=== PATIENT | female | born 1960 | race Caucasian/White ===

== ENCOUNTER 2021-10-09 20:29 | Inpatient (IN) ==
[2021-10-09] MEDS ORDERED: KETOROLAC TROMETHAMINE 15 MG/ML VIAL IV STA (20:42)
[2021-10-09] MEDS ORDERED: ONDANSETRON INJ 2 MG/ML 2 ML VIAL IV STA (20:42)
[2021-10-09] MEDS ORDERED: SODIUM CHLORIDE 0.9% 1000ML 1,000 ML IV ONE (20:42)
[2021-10-09 21:24] LABS: Basophils # (auto) 0.01 K/uL (0-0.2); Basophils % (auto) 0.1 %; Eosinophils # (auto) 0.07 K/uL (0-0.5); Eosinophils % (auto) 0.8 %; Hematocrit (blood only) 41.9 % (37-47); Immature Granulocytes # (auto) 0.01 K/uL (0.00-0.02); Immature Granulocytes % (auto) 0.1 %; Lymphocytes % (auto) 30.8 %; Mean Corpuscular Hemoglobin 30.6 pg (25-34); Mean Corpuscular Hgb Conc 33.4 g/dL (32-36); Mean Corpuscular Volume 91.5 fL (80-100); Mean Platelet Volume 9.1 fL (7.4-10.4); Monocytes # (auto) 0.74 K/uL (0.11-0.59); Monocytes % (auto) 8.1 %; Neutrophils # (auto) 5.45 K/uL (1.4-6.5); Neutrophils % (auto) 60.1 %; Platelet Count 317 K/uL (130-400); RDW Coefficient of Variation 14.4 % (11.5-14.5); RDW Standard Deviation 48.5 fL (36.4-46.3); Red Blood Count 4.58 M/uL (4.2-5.4); White Blood Count 9.08 K/uL (4.8-10.8)
[2021-10-09 22:01] LABS: Albumin Level 4.2 gm/dl (3.4-5.0); BUN Creatinine Ratio 12.3 (10-20); Bilirubin,Total 0.3 mg/dl (0.2-1.0); Calcium 9.6 mg/dl (8.5-10.1); Creatinine Clr Calc Pharmacy 56.9 ml/min; Est GFR (African American) 55.8 ml/min; Est GFR (Non-African American) 48.1 ml/min; Potassium 3.5 mmol/L (3.5-5.1); Total Protein 7.7 gm/dl (6.0-8.3)
--- NOTE | 2021-10-09 22:38 | Emergency Department Note ---
History of Present Illness General Chief Complaint: Abdominal Pain Stated Complaint: ABDOMINAL PAIN, NAUSEA Time Seen by Provider: 10/09/21 20:42 History of Present Illness Provider Complaint: abdominal pain Onset (ago): 1 day(s) Pain Consistency: constant Location: periumbilical Radiation: epigastric Severity: moderate Maximum Pain Intensity: 4 Current Pain Intensity: 4 Quality: + stabbing, + aching, + sharp and + dull Relieved By: + nothing Exacerbated By: + nothing Context: no foreign travel, no possible food poisoning, no sick contacts, no recent antibiotic use, no recent surgery/procedure or no recent injury Associated Symptoms: + nausea; no vomiting, no diarrhea, no fever, no chills, no constipation, no dysuria, no hematemesis, no hematochezia, no melena, no hematuria, no anorexia, no syncope, no headache, no neck pain, no back pain, no chest pain, no weakness, no breathing difficulty and no numbness Related Data Patient Confirmed : No Home Medications Medication Instructions Recorded Confirmed Type acetaminophen 500 mg tablet 1,000 mg PO Q6H PRN 01/20/20 01/20/20 History (Tylenol Extra Strength) citalopram 20 mg tablet (Celexa) 30 mg PO DAILY 01/20/20 01/20/20 History lorazepam 1 mg tablet (Ativan) 1 mg PO DAILY 01/20/20 01/20/20 History Allergies Allergy/AdvReac Type Severity Reaction Status Date / Time No Known Allergies Allergy Verified 01/20/20 22:19 Past Med/Surg History Medical History (Updated 10/09/21 @ 23:53 by Sameer Vinson) Anxiety Surgical History No pertinent past surgical history Social History Smoking Status: Never smoker Preferred Language: Indonesian Feels Safe at Home: Yes Review of Systems A total of 10 systems reviewed and were otherwise negative Physical Exam Vital Signs: Vital Signs - 24 hr 10/09/21 20:36 10/09/21 20:42 10/09/21 21:00 Temperature 36.8 C 36.8 C Temperature Source Temporal Artery Sc an Oral Pulse Rate 105 H 74 Pulse Rate [Apical ] 100 H Pulse Rhythm Regular Regular Pulse Rhythm [Apic al] Regular Pulse Strength Normal Pulse Strength [Ap ical] Normal Respiratory Rate 18 18 18 Respiratory Effort / Characteristics Non-Labored Sponta neous Non-Labored Sponta neous Respiratory Depth Normal Normal Respiratory Patter n Regular Regular Blood Pressure 162/96 H Blood Pressure [Ri ght Arm] 144/117 H Blood Pressure [place] n 118 Blood Pressure [place] n [Right Arm] 126 Blood Pressure Pos ition Sitting Blood Pressure Pos ition [Right Arm] Lying Pulse Oximetry 97 97 98 Oxygen Delivery Me thod Room Air Room Air Room Air Sepsis Recent Feve r Within 48 Hours No Sepsis New/Unexpla ined Change in Men cruzito Status N/A Sepsis Action Take n by Nursing No Action Required 10/09/21 23:00 Temperature 36.8 C Temperature Source Oral Pulse Rate Pulse Rate [Apical ] 72 Pulse Rhythm Pulse Rhythm [Apic al] Regular Pulse Strength Pulse Strength [Ap ical] Normal Respiratory Rate 18 Respiratory Effort / Characteristics Non-Labored Sponta neous Respiratory Depth Normal Respiratory Patter n Regular Blood Pressure Blood Pressure [Ri ght Arm] 150/97 H Blood Pressure [place] n Blood Pressure [place] n [Right Arm] 114 Blood Pressure Pos ition Blood Pressure Pos ition [Right Arm] Lying Pulse Oximetry 96 Oxygen Delivery Me thod Room Air Sepsis Recent Feve r Within 48 Hours Sepsis New/Unexpla ined Change in Men cruzito Status Sepsis Action Take n by Nursing Physical Exam: Physical Exam GENERAL: She is oriented to person, place, and time. She appears well-developed and well-nourished. She does not appear distressed. HENT: Exam performed. -Head: Normocephalic and atraumatic. -Right Ear: External ear normal. No mastoid tenderness. -Left Ear: External ear normal. No mastoid tenderness. -Mouth/Throat: The oropharynx is clear and moist. No trismus in the jaw. No dental abscesses or uvula swelling. No oropharyngeal exudate or tonsillar abscesses. EYES: Conjunctivae and EOM are normal. Pupils are equal, round, and reactive to light. Right eye exhibits no discharge. Left eye exhibits no discharge. No scleral icterus. NECK: Normal range of motion. Neck supple. No JVD present. No spinous process tenderness present. No carotid bruit present. No rigidity. No tracheal deviation and normal range of motion present. No Brudzinski's sign and no Kernig's sign noted. CV: Normal rate, regular rhythm, normal heart sounds and intact distal pulses. There is no peripheral edema. Palpable radial pulses bue. PULM/CHEST: Effort normal and breath sounds normal. No respiratory distress. No stridor. She has no wheezes. She has no rales. -Chest Wall: She exhibits no tenderness. ABD: The abdomen is soft. Bowel sounds are normal. She has no distension. No mass is present. There is no tenderness. There is no rebound, no guarding, no Reyes's sign and no tenderness at McBurney's point. Rovsig negative MUSC/SKEL: Normal range of motion. There is no peripheral edema, tenderness or deformity. LYMPH: No cervical adenopathy. NEURO: She is alert and oriented to person, place, and time. She has normal strength. No cranial nerve deficit or sensory deficit. Coordination and gait normal. GCS eye subscore is 4. GCS verbal subscore is 5. GCS motor subscore is 6. Cerebellar tests wnl. SKIN: Skin is warm and dry. She is not diaphoretic. PSYCH: She has a normal mood and affect. Behavior is normal. Judgment and thought content normal. Course Course 2041: The patient was evaluated in room . A complete history and physical exam was performed Cardiac monitoring: An order was placed for continuous cardiac monitoring. The monitor shows a rate of 100 with sinus rhythm 2351: Vital signs stable. Labs within normal limits. Imaging shows inflammation around the pancreas. Patient will be admitted to the [facility] hospitalist team for pancreatitis. Patient is a [facility] GI Dr. [place]. Administered Medications Discontinued Medications Sodium Chloride (Nss 1000ml) 1,000 mls @ 999 mls/hr IV .Q1H1M ONE Stop: 10/09/21 21:42 Last Infusion: 10/09/21 21:58 Dose: 0 mls/hr Documented by: [id number] Admin: 10/09/21 21:11 Dose: 999 mls/hr Documented by: [id number] Ketorolac Tromethamine (Ketorolac Tromethamine 15 Mg/Ml Vial) 15 mg IV NOW STA Stop: 10/09/21 20:43 Last Admin: 10/09/21 21:11 Dose: 15 mg Documented by: [id number] Ondansetron HCl (Ondansetron Inj 2 Mg/Ml 2 Ml Vial) 4 mg IV NOW STA Stop: 10/09/21 20:43 Last Admin: 10/09/21 21:11 Dose: 4 mg Documented by: [id number] Medical Decision Making Laboratory Data Result diagrams: 10/09/21 21:05 10/09/21 21:05 Lab Results 10/09/21 10/09/21 10/09/21 Range/Units 21:05 21:05 21:05 WBC 9.08 (4.8-10.8) K/uL RBC 4.58 (4.2-5.4) M/uL Hgb 14.0 (12.0-16.0) g/dL Hct 41.9 (37-47) % MCV 91.5 (80-100) fL MCH 30.6 (25-34) pg MCHC 33.4 (32-36) g/dL RDW Std Deviation 48.5 H (36.4-46.3) fL RDW Coeff of Anayeli 14.4 (11.5-14.5) % Plt Count 317 (130-400) K/uL MPV 9.1 (7.4-10.4) fL Immature Gran % (Auto) 0.1 % Neut % (Auto) 60.1 % Lymph % (Auto) 30.8 % [place] % (Auto) 8.1 % Eos % (Auto) 0.8 % Baso % (Auto) 0.1 % Neut # (Auto) 5.45 (1.4-6.5) K/uL Lymph # (Auto) 2.80 (1.2-3.4) K/uL [place] # (Auto) 0.74 H (0.11-0.59) K/uL Eos # (Auto) 0.07 (0-0.5) K/uL Baso # (Auto) 0.01 (0-0.2) K/uL Immature Gran # (Auto) 0.01 (0.00-0.02) K/uL Sodium 140 (136-145) mmol/L Potassium 3.5 (3.5-5.1) mmol/L Chloride 105 (98-107) mmol/L Carbon Dioxide 28 (21-32) mmol/L Anion Gap 7 (3-11) BUN 15 (6-23) mg/dl Creatinine 1.22 H (0.6-1.2) mg/dl Est Cr Clr Drug Dosing 56.9 ml/min Est GFR ( Amer) 55.8 ml/min Est GFR (Non-Af Amer) 48.1 ml/min BUN/Creatinine Ratio 12.3 (10-20) Glucose 138 H (70-99(Fasting)) mg/dl Calcium 9.6 (8.5-10.1) mg/dl Total Bilirubin 0.3 (0.2-1.0) mg/dl Direct Bilirubin 0.0 (0-0.2) mg/dl AST 18 (13-39) U/L ALT 20 (7-52) U/L Alkaline Phosphatase 103 (34-104) U/L Total Protein 7.7 (6.0-8.3) gm/dl Albumin 4.2 (3.4-5.0) gm/dl Lipase 26 (11-82) U/L Imaging Data Radiologist's Impression: PreliminaryFindingsOnly See Final Report For Complete Findings CT ABDOMEN & PELVIS With Contrast: Status post cholecystectomy. Small hiatal hernia. The appendix is normal. No evidence of hydronephrosis or urinarycalculi. Moderate atrophyof the pancreaswith mild inflammation around the pancreatic head, which mayrepresent pancreatitis. Recommend correlation with lipase levels. No evidence of small bowel obstruction. Diverticulosis of the sigmoid colon. No comparisons. Radiologist: Steff Cunha MD Study ready at 23:22 and initial results transmitted at 23:33 ECG Data Indication: abdominal pain Rate (beats per minute): 97 Rhythm: normal sinus Findings: no ST depression, no ST elevation or no prolonged QT MDM Narrative Vital signs stable. Labs within normal limits. Imaging shows inflammation around the pancreas. Patient will be admitted to the [facility] hospitalist team for pancreatitis. Patient is a [facility] GI Dr. [place]. Impression & Plan Pancreatitis Discharge Plan Visit Data Chief Complaint: Abdominal Pain Stated Complaint: ABDOMINAL PAIN, NAUSEA ED Provider: Sameer Vinson Discharge Problem: Pancreatitis Patient Disposition: Being Evaluated by Hospitalist Forms Stand Alone Forms: [employer] Prescriptions Prescriptions: No Action acetaminophen [Tylenol Extra Strength] 500 mg Tablet 1,000 mg PO Q6H PRN (Reason: Pain) RF: 0 citalopram [Celexa] 20 mg tablet 30 mg PO DAILY RF: 0 lorazepam [Ativan] 1 mg tablet 1 mg PO DAILY RF: 0 Referrals Referrals: Farooq Regan DO [Primary Care Provider] -
[2021-10-09] MEDS ORDERED: OPTIRAY 320 100ml IV ONE (23:20)
[2021-10-09] MEDS ORDERED: SODIUM CHLORIDE 0.9% 1000ML 1,000 ML IV SCH (23:45)
[2021-10-10] MEDS ORDERED: LACTATED RINGER'S 1,000 ML IV ONE (00:02)
--- NOTE | 2021-10-10 00:05 | History & Physical Report ---
Date of Service October 10, 2021 Assessment & Plan (1) Pancreatitis: Plan: ? Secondary COVID-19 illness hypertension, elevated secondary discomfort ARF secondary to illness hyperlipidemia on statin Rx anxiety/mood disorder, at baseline Hyperglycemia rule out DM GMF Bowel rest, IVF GI consult Re: Pancreatitis Supportive management for patient's COVID-19 illness Baseline UA, monitor creatinine response to IVF Hold lisinopril until creatinine back to baseline Initiate amlodipine if BP persistently elevated Check hemoglobin A1c DVT prophylaxis per Heparin subcu Full code Text document was generated using ustyme voice recognition software. It may contain grammatical or spelling errors. Kindly contact undersigned for clarification of any documentation item in question. History of Present Illness Chief Complaint: Abdominal pain Primary Care Provider: Farooq Regan DO History obtained from patient and records. Medical history significant for hypertension, hyperlipidemia, anxiety/mood disorder. Last confinement April 2013 under Gynecology service for right adnexal mass status post surgery. 4 days history of dry cough symptoms, chills, fair appetite. 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 Patient completed COVID-19 vaccination. Yesterday, patient noted achy periumbilical abdominal pain going up with nausea which felt like her gallbladder attack. No emesis. No chest pain, no SOB, no fever, no chills. No prior episodes. No recent EtOH intake/fatty meal intake. Patient consulted ER for evaluation. 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 Allergies Allergy/AdvReac Type Severity Reaction Status Date / Time No Known Allergies Allergy Verified 10/10/21 00:12 Home Medications Medication Instructions Recorded Confirmed Type lorazepam 1 mg tablet (Ativan) 1 mg PO AMPM PRN 01/20/20 10/10/21 History atorvastatin 40 mg tablet 40 mg PO QAM 10/10/21 10/10/21 History buspirone 10 mg tablet 20 mg PO BID 10/10/21 10/10/21 History hydroxyzine HCl 50 mg tablet 50 mg PO BID 10/10/21 10/10/21 History lisinopril 10 mg tablet 10 mg PO QAM 10/10/21 10/10/21 History omeprazole magnesium 20 mg 20 mg PO DAILY 10/10/21 10/10/21 History tablet,delayed release (Prilosec OTC) sertraline 100 mg tablet 100 mg PO DAILY 10/10/21 10/10/21 History Past Med/Surg History Medical History (Updated 10/09/21 @ 23:53 by Sameer Vinson) Anxiety Surgical History No pertinent past surgical history Social History Smoking Status: Never smoker Hx Alcohol Use: No Hx Substance Use: No Preferred Language: [place] Islander Communication Ability: Effective 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 Beliefs That Will Affect Care: None Current Living Situation: Family Other Information That Helps Us Care for You: No Feels Safe at Home: Yes Safety Concerns: Feels Safe At This Time Assistive Devices: Glasses Review of Systems Review of Systems: As per HPI, all other systems reviewed and negative Physical Exam Physical Exam: GENERAL: Comfortable, pleasant, obese, slightly anxious, no respiratory distress SKIN: Normal color, warm HEENT: Bespectacled, [place]ago palpebral conjunctivae, no ptosis, dry buccal mucosa NECK : Supple, short neck, no tenderness CHEST : CTA, no tenderness HEART : RRR, no obvious murmurs ABDOMEN: Some distention, epigastric tenderness EXTREMITIES : No LE swelling/tenderness, no other conspicuous deformities noted NEUROLOGIC : Coherent, no facial asymmetry, no other gross focality Results & Data Results & Data ([facility]) Vital Signs (Past 12 Hours) Vital Signs Temp Pulse Pulse Resp BP BP Pulse Ox 10/09/21 23:00 36.8 C 72 18 150/97 H 96 10/09/21 21:00 36.8 C 100 H 18 144/117 H 98 10/09/21 20:42 74 18 97 10/09/21 20:36 36.8 C 105 H 18 162/96 H 97 Laboratory Results Laboratory Results WBC 9.08 K/uL (4.8-10.8) 10/09/21 21:05 RBC 4.58 M/uL (4.2-5.4) 10/09/21 21:05 Hgb 14.0 g/dL (12.0-16.0) 10/09/21 21:05 Hct 41.9 % (37-47) 10/09/21 21:05 MCV 91.5 fL (80-100) 10/09/21 21:05 MCH 30.6 pg (25-34) 10/09/21 21:05 MCHC 33.4 g/dL (32-36) 10/09/21 21:05 RDW Std Deviation 48.5 fL (36.4-46.3) H 10/09/21 21:05 RDW Coeff of Anayeli 14.4 % (11.5-14.5) 10/09/21 21:05 Plt Count 317 K/uL (130-400) 10/09/21 21:05 MPV 9.1 fL (7.4-10.4) 10/09/21 21:05 Immature Gran % (Auto) 0.1 % 10/09/21 21:05 Neut % (Auto) 60.1 % 10/09/21 21:05 Lymph % (Auto) 30.8 % 10/09/21 21:05 [place] % (Auto) 8.1 % 10/09/21 21:05 Eos % (Auto) 0.8 % 10/09/21 21:05 Baso % (Auto) 0.1 % 10/09/21 21:05 Neut # (Auto) 5.45 K/uL (1.4-6.5) 10/09/21 21:05 Lymph # (Auto) 2.80 K/uL (1.2-3.4) 10/09/21 21:05 [place] # (Auto) 0.74 K/uL (0.11-0.59) H 10/09/21 21:05 Eos # (Auto) 0.07 K/uL (0-0.5) 10/09/21 21:05 Baso # (Auto) 0.01 K/uL (0-0.2) 10/09/21 21:05 Immature Gran # (Auto) 0.01 K/uL (0.00-0.02) 10/09/21 21:05 Sodium 140 mmol/L (136-145) 10/09/21 21:05 Potassium 3.5 mmol/L (3.5-5.1) 10/09/21 21:05 Chloride 105 mmol/L (98-107) 10/09/21 21:05 Carbon Dioxide 28 mmol/L (21-32) 10/09/21 21:05 Anion Gap 7 (3-11) 10/09/21 21:05 BUN 15 mg/dl (6-23) 10/09/21 21:05 Creatinine 1.22 mg/dl (0.6-1.2) H 10/09/21 21:05 Est Cr Clr Drug Dosing 56.9 ml/min 10/09/21 21:05 Est GFR ( Amer) 55.8 ml/min 10/09/21 21:05 Est GFR (Non-Af Amer) 48.1 ml/min 10/09/21 21:05 BUN/Creatinine Ratio 12.3 (10-20) 10/09/21 21:05 Glucose 138 mg/dl (70-99(Fasting)) H 10/09/21 21:05 Calcium 9.6 mg/dl (8.5-10.1) 10/09/21 21:05 Total Bilirubin 0.3 mg/dl (0.2-1.0) 10/09/21 21:05 Direct Bilirubin 0.0 mg/dl (0-0.2) 10/09/21 21:05 AST 18 U/L (13-39) 10/09/21 21:05 ALT 20 U/L (7-52) 10/09/21 21:05 Alkaline Phosphatase 103 U/L (34-104) 10/09/21 21:05 Total Protein 7.7 gm/dl (6.0-8.3) 10/09/21 21:05 Albumin 4.2 gm/dl (3.4-5.0) 10/09/21 21:05 Lipase 26 U/L (11-82) 10/09/21 21:[address] abdomen pelvis initial read: Status post cholecystectomy. Small hiatal hernia. The appendix is normal. No evidence of hydronephrosis or urinary calculi. Moderate atrophy of the pancreas with mild inflammation around the pancreatic head, which may represent pancreatitis. Recommend correlation with lipase levels. No evidence of small bowel obstruction. Diverticulosis of the sigmoid colon. No comparisons Chest x-ray as per my interpretation atelectasis, no infiltrate (1) Pancreatitis Acute pancreatitis complication: unspecified Chronicity: acute Pancreatitis type: unspecified pancreatitis type Qualified Code(s): K85.90 - Acute pancreatitis without necrosis or infection, unspecified
[2021-10-10] MEDS ORDERED: HYDROmorphone INJ 0.5 MG/0.5 ML SYR IV PRN (01:01)
[2021-10-10] MEDS ORDERED: PROMETHAZINE HCL 12.5 MG in SODIUM CHLORIDE 0.9% 50 ML IV PRN (01:01)
[2021-10-10] MEDS ORDERED: traMADol HCL 50 MG TABLET PO PRN (01:01)
[2021-10-10] MEDS ORDERED: ACETAMINOPHEN 325 MG TAB PO PRN (01:01)
[2021-10-10] MEDS: LACTATED RINGER'S 1,000 ML IV SCH ×4 (04:15→19:56)
[2021-10-10] MEDS: LORazepam 1 MG TAB PO PRN ×2 (04:30→18:36)
[2021-10-10] MEDS: HEPARIN SOD 5,000 UNIT/0.5 ML VIAL SQ SCH ×3 (05:50→19:59)
--- NOTE | 2021-10-10 06:45 | XRay Report ---
XR chest 1V portable CLINICAL HISTORY: Renal failure. COMPARISON STUDY: Chest radiograph April 24, 2013. FINDINGS: Lung volumes are normal. Lungs are clear. There is no pneumothorax or pleural effusion. Car diac size is normal. Mediastinal contours are normal. There is no evidence for pulmonary edema. IMPRESSION: No acute cardiopulmonary findings. ACT 112: Negative or not required by law. Electronically signed by: Tato Jane M.D. 10/10/2021 6:44 AM
[2021-10-10 06:58] LABS: Basophils # (auto) 0.02 K/uL (0-0.2); Basophils % (auto) 0.3 %; Eosinophils # (auto) 0.08 K/uL (0-0.5); Eosinophils % (auto) 1.1 %; Hematocrit (blood only) 38.7 % (37-47); Hemoglobin 12.6 g/dL (12.0-16.0); Immature Granulocytes # (auto) 0.01 K/uL (0.00-0.02); Immature Granulocytes % (auto) 0.1 %; Lymphocytes # (auto) 2.26 K/uL (1.2-3.4); Lymphocytes % (auto) 31.4 %; Mean Corpuscular Hemoglobin 29.6 pg (25-34); Mean Corpuscular Hgb Conc 32.6 g/dL (32-36); Mean Corpuscular Volume 91.1 fL (80-100); Mean Platelet Volume 8.9 fL (7.4-10.4); Monocytes # (auto) 0.75 K/uL (0.11-0.59); Monocytes % (auto) 10.4 %; Neutrophils # (auto) 4.07 K/uL (1.4-6.5); Neutrophils % (auto) 56.7 %; Platelet Count 268 K/uL (130-400); RDW Coefficient of Variation 14.6 % (11.5-14.5); RDW Standard Deviation 48.8 fL (36.4-46.3); Red Blood Count 4.25 M/uL (4.2-5.4); White Blood Count 7.19 K/uL (4.8-10.8)
[2021-10-10 07:21] LABS: Albumin Globulin Ratio 1.2 (0.9-2); Albumin Level 3.6 gm/dl (3.4-5.0); BUN Creatinine Ratio 11.1 (10-20); Bilirubin,Total 0.3 mg/dl (0.2-1.0); Calcium 8.8 mg/dl (8.5-10.1); Creatinine Clr Calc Pharmacy 64.2 ml/min; Est GFR (African American) 64.6 ml/min; Est GFR (Non-African American) 55.8 ml/min; Globulin 2.9 gm/dl (2.5-4.0); Total Protein 6.5 gm/dl (6.0-8.3)
--- NOTE | 2021-10-10 07:41 | Gastrointestinal Consultation ---
Date of Consultation October 10, 2021 Assessment & Plan (1) Pancreatitis: 61 year old female with COVID-19 infection admitted with upper abdominal pain, nausea, imaging showing pancreatic atrophy and question of inflammatory changes near the head of the pancreas. She is s/p ccy years ago without serologic abnormalities including normal lipase and liver function tests. 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 Thank you for allowing us to participate in the care of this patient. Please call with any acute changes, questions or concerns. Please see addendum below with additional recommendation from my supervising physician. Supervising Physician Co-Signing Physician Notes I reviewed the patient's chart but did not examine the patient due to her recent diagnosis with COVID-19. We were consulted for evaluation of an abnormal imaging study. As the patient appears to have normal liver transaminases and a normal lipase I wonder if her imaging abnormality is related to her ongoing infection. We certainly provide further evaluation as an outpatient with endoscopic ultrasound in 6 to 8 weeks when she recovers from this acute infection. EUS in 6 to 8 weeks Please call with any additional questions or concerns, GI to sign off History of Present Illness Reason for Consultation: pancreatits Requesting Physician: Yudelka Attending Physician: Kelli Baird, DO History of Present Illness 61 year old female with history of dyslipidemia others below who presented to the ED for evaluation of abd pain, nausea - admitted with pancreatitis on imaging. Of note, pt endorsed a week of respiratory symptoms and tested positive for COVID-19 infection. Chart review was completed. CT pending official read, statrad overnight dictated s/p ccy, pancreatic atrophy and mild inflammation around pancreatic head which may represent pancreatitis. On arrival, she was hemodynamically stable with normal liver function test and unremarkable lipase. No leukocytosis. She was made NPO, started on LR replacement and conservative measures. Allergies Allergy/AdvReac Type Severity Reaction Status Date / Time No Known Allergies Allergy Verified 10/10/21 00:12 Home Medications Medication Instructions Recorded Confirmed Type lorazepam 1 mg tablet (Ativan) 1 mg PO AMPM PRN 01/20/20 10/10/21 History atorvastatin 40 mg tablet 40 mg PO QAM 10/10/21 10/10/21 History buspirone 10 mg tablet 20 mg PO BID 10/10/21 10/10/21 History hydroxyzine HCl 50 mg tablet 50 mg PO BID 10/10/21 10/10/21 History lisinopril 10 mg tablet 10 mg PO QAM 10/10/21 10/10/21 History omeprazole magnesium 20 mg 20 mg PO DAILY 10/10/21 10/10/21 History tablet,delayed release (Prilosec OTC) sertraline 100 mg tablet 100 mg PO DAILY 10/10/21 10/10/21 History Patient History Medical History (Updated 10/09/21 @ 23:53 by Sameer Vinson) Anxiety Surgical History No pertinent past surgical history Social History Smoking Status: Never smoker Hx Alcohol Use: No Hx Substance Use: No Preferred Language: Slovenian Communication Ability: 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) Vital Signs (Past 12 Hours) Vital Signs Temp Pulse Pulse Pulse Resp BP BP 10/10/21 03:53 36.8 C 99 H 18 154/95 H 10/10/21 03:00 37 C 80 18 150/97 H 10/10/21 01:00 36.9 C 67 18 150/97 H 10/09/21 23:00 36.8 C 72 18 150/97 H 10/09/21 21:00 36.8 C 100 H 18 144/117 H 10/09/21 20:42 74 18 10/09/21 20:36 36.8 C 105 H 18 162/96 H Pulse Ox 10/10/21 03:53 94 10/10/21 03:00 92 10/10/21 01:00 95 10/09/21 23:00 96 10/09/21 21:00 98 10/09/21 20:42 97 10/09/21 20:36 97 Laboratory Results 10/10/21 10/10/21 10/10/21 Range/Units 06:45 06:45 06:45 WBC 7.19 (4.8-10.8) K/uL RBC 4.25 (4.2-5.4) M/uL Hgb 12.6 (12.0-16.0) g/dL Hct 38.7 (37-47) % MCV 91.1 (80-100) fL MCH 29.6 (25-34) pg MCHC 32.6 (32-36) g/dL RDW Std Deviation 48.8 H (36.4-46.3) fL RDW Coeff of Anayeli 14.6 H (11.5-14.5) % Plt Count 268 (130-400) K/uL MPV 8.9 (7.4-10.4) fL Immature Gran % (Auto) 0.1 % Neut % (Auto) 56.7 % Lymph % (Auto) 31.4 % Polk % (Auto) 10.4 % Eos % (Auto) 1.1 % Baso % (Auto) 0.3 % Neut # (Auto) 4.07 (1.4-6.5) K/uL Lymph # (Auto) 2.26 (1.2-3.4) K/uL Polk # (Auto) 0.75 H (0.11-0.59) K/uL Eos # (Auto) 0.08 (0-0.5) K/uL Baso # (Auto) 0.02 (0-0.2) K/uL Immature Gran # (Auto) 0.01 (0.00-0.02) K/uL Sodium 141 (136-145) mmol/L Potassium 4.0 (3.5-5.1) mmol/L Chloride 107 (98-107) mmol/L Carbon Dioxide 28 (21-32) mmol/L Anion Gap 6 (3-11) BUN 12 (6-23) mg/dl Creatinine 1.08 (0.6-1.2) mg/dl Est Cr Clr Drug Dosing 64.2 ml/min Est GFR ( Amer) 64.6 ml/min Est GFR (Non-Af Amer) 55.8 ml/min BUN/Creatinine Ratio 11.1 (10-20) Glucose 97 (70-99(Fasting)) mg/dl Estimat Average Glucose Hemoglobin A1c Calcium 8.8 (8.5-10.1) mg/dl Magnesium (1.7-2.4) mg/dl Total Bilirubin 0.3 (0.2-1.0) mg/dl Direct Bilirubin (0-0.2) mg/dl AST 15 (13-39) U/L ALT 16 (7-52) U/L Alkaline Phosphatase 81 (34-104) U/L Total Protein 6.5 (6.0-8.3) gm/dl Albumin 3.6 (3.4-5.0) gm/dl Globulin 2.9 (2.5-4.0) gm/dl Albumin/Globulin Ratio 1.2 (0.9-2) Lipase (11-82) U/L Hepatitis C Ab (EIA) Pending Hep C Ab Signal/Cutoff Pending SARS-CoV-2, RNA, NAAT (NEGATIVE) 10/09/21 10/09/21 10/09/21 Range/Units 23:45 21:05 21:05 WBC (4.8-10.8) K/uL RBC (4.2-5.4) M/uL Hgb (12.0-16.0) g/dL Hct (37-47) % MCV (80-100) fL MCH (25-34) pg MCHC (32-36) g/dL RDW Std Deviation (36.4-46.3) fL RDW Coeff of Anayeli (11.5-14.5) % Plt Count (130-400) K/uL MPV (7.4-10.4) fL Immature Gran % (Auto) % Neut % (Auto) % Lymph % (Auto) % Polk % (Auto) % Eos % (Auto) % Baso % (Auto) % Neut # (Auto) (1.4-6.5) K/uL Lymph # (Auto) (1.2-3.4) K/uL Polk # (Auto) (0.11-0.59) K/uL Eos # (Auto) (0-0.5) K/uL Baso # (Auto) (0-0.2) K/uL Immature Gran # (Auto) (0.00-0.02) K/uL Sodium (136-145) mmol/L Potassium (3.5-5.1) mmol/L Chloride (98-107) mmol/L Carbon Dioxide (21-32) mmol/L Anion Gap (3-11) BUN (6-23) mg/dl Creatinine (0.6-1.2) mg/dl Est Cr Clr Drug Dosing ml/min Est GFR ( Amer) ml/min Est GFR (Non-Af Amer) ml/min BUN/Creatinine Ratio (10-20) Glucose (70-99(Fasting)) mg/dl Estimat Average Glucose Hemoglobin A1c Calcium (8.5-10.1) mg/dl Magnesium 1.9 (1.7-2.4) mg/dl Total Bilirubin (0.2-1.0) mg/dl Direct Bilirubin (0-0.2) mg/dl AST (13-39) U/L ALT (7-52) U/L Alkaline Phosphatase (34-104) U/L Total Protein (6.0-8.3) gm/dl Albumin (3.4-5.0) gm/dl Globulin (2.5-4.0) gm/dl Albumin/Globulin Ratio (0.9-2) Lipase 26 (11-82) U/L Hepatitis C Ab (EIA) Hep C Ab Signal/Cutoff SARS-CoV-2, RNA, NAAT POSITIVE A* (NEGATIVE) 10/09/21 10/09/21 10/09/21 Range/Units 21:05 21:05 20:43 WBC 9.08 (4.8-10.8) K/uL RBC 4.58 (4.2-5.4) M/uL Hgb 14.0 (12.0-16.0) g/dL Hct 41.9 (37-47) % MCV 91.5 (80-100) fL MCH 30.6 (25-34) pg MCHC 33.4 (32-36) g/dL RDW Std Deviation 48.5 H (36.4-46.3) fL RDW Coeff of Anayeli 14.4 (11.5-14.5) % Plt Count 317 (130-400) K/uL MPV 9.1 (7.4-10.4) fL Immature Gran % (Auto) 0.1 % Neut % (Auto) 60.1 % Lymph % (Auto) 30.8 % Polk % (Auto) 8.1 % Eos % (Auto) 0.8 % Baso % (Auto) 0.1 % Neut # (Auto) 5.45 (1.4-6.5) K/uL Lymph # (Auto) 2.80 (1.2-3.4) K/uL Polk # (Auto) 0.74 H (0.11-0.59) K/uL Eos # (Auto) 0.07 (0-0.5) K/uL Baso # (Auto) 0.01 (0-0.2) K/uL Immature Gran # (Auto) 0.01 (0.00-0.02) K/uL Sodium 140 (136-145) mmol/L Potassium 3.5 (3.5-5.1) mmol/L Chloride 105 (98-107) mmol/L Carbon Dioxide 28 (21-32) mmol/L Anion Gap 7 (3-11) BUN 15 (6-23) mg/dl Creatinine 1.22 H (0.6-1.2) mg/dl Est Cr Clr Drug Dosing 56.9 ml/min Est GFR ( Amer) 55.8 ml/min Est GFR (Non-Af Amer) 48.1 ml/min BUN/Creatinine Ratio 12.3 (10-20) Glucose 138 H (70-99(Fasting)) mg/dl Estimat Average Glucose Pending Hemoglobin A1c Pending Calcium 9.6 (8.5-10.1) mg/dl Magnesium (1.7-2.4) mg/dl Total Bilirubin 0.3 (0.2-1.0) mg/dl Direct Bilirubin 0.0 (0-0.2) mg/dl AST 18 (13-39) U/L ALT 20 (7-52) U/L Alkaline Phosphatase 103 (34-104) U/L Total Protein 7.7 (6.0-8.3) gm/dl Albumin 4.2 (3.4-5.0) gm/dl Globulin (2.5-4.0) gm/dl Albumin/Globulin Ratio (0.9-2) Lipase (11-82) U/L Hepatitis C Ab (EIA) Hep C Ab Signal/Cutoff SARS-CoV-2, RNA, NAAT (NEGATIVE) (1) Pancreatitis Acute pancreatitis complication: unspecified Chronicity: acute Pancreatitis type: unspecified pancreatitis type Qualified Code(s): K85.90 - Acute pancreatitis without necrosis or infection, unspecified
--- NOTE | 2021-10-10 08:30 | CT Scan Report ---
ABDOMEN AND PELVIS CT WITH IV CONTRAST CT DOSE: 1239.47 mGy.cm HISTORY: Acute generalized abdominal pain abd pain TECHNIQUE: Multiaxial CT images of the abdomen and pelvis were performed following the IV administrat ion of 93 cc of Optiray, A dose lowering technique was utilized adhering to the principles of ALARA. COMPARISON STUDY: CT abdomen and pelvis 04/24/2013 FINDINGS: Mild subsegmental bibasilar atelectasis. No pneumatosis or pneumoperitoneum. The imaged inf erior cardiac chambers are unremarkable. The spleen, adrenal glands and liver are unremarkable. Paten cy of the hepatic and portal veins. Cholecystectomy. Mild to moderate pancreatic atrophy. There is mi ld interstitial and peripancreatic edema involving the pancreatic head and uncinate process. No pancr eatic ductal dilation, focal fluid collection or mass identified. No biliary ductal dilation. Symmetric enhancement of the kidneys without hydronephrosis. Mild urinary bladder wall thickening wit h partial distention. Heterogeneous uterus with suggested fundal fibroid and subcentimeter calcificat ion. The previous noted large cystic pelvic mass is no longer present. No adnexal mass lesions identi fied on today's study. Aorta and IVC are unremarkable. There is no lymphadenopathy. Small hiatal hernia. Duodenal diverticulum. No bowel obstruction or bowel wall thickening. Colonic di verticulosis without acute diverticulitis. Mild fecal retention. Normal appendix. Unremarkable soft t issues. Degenerative changes of the spine, pelvis and hips. IMPRESSION: 1. Mild interstitial edematous pancreatitis. 2. No pancreatic or biliary ductal dilation or acute peripancreatic fluid collection. 3. No bowel obstruction or bowel wall thickening. 4. Additional findings as above include colonic diverticulosis, fibroid uterus and small hiatal herni a. ACT 112: Negative or not required by law. The above report was generated using voice recognition software. It may contain grammatical, syntax o r spelling errors. Electronically signed by: Fermin Edwards M.D. 10/10/2021 8:29 AM
[2021-10-10] MEDS: hydrOXYzine HCl 25 MG TAB PO SCH ×2 (08:41→19:59)
[2021-10-10] MEDS: SERTRALINE HCL 100 MG TABLET PO SCH (08:42)
[2021-10-10] MEDS: PANTOprazole 40 MG TAB PO SCH (08:42)
[2021-10-10 08:44] LABS: Estimated Average Glucose 126 mg/dl
[2021-10-10] MEDS ORDERED: busPIRone 5 MG TAB PO SCH ×2 (09:00→16:00)
[2021-10-10 09:34] LABS: Appearance Urine Clear (Clear); Bacteria Urine Automated Negative (Negative); Bilirubin Urine Negative (Negative); Blood Urine 1+ (Negative); Cast Urine Automated 0 /lpf (0-5); Color Urine Yellow; Epithelial Cell Urine Auto 20-30 /lpf (0-5); Glucose Urine UA Negative (Negative); Ketones Urine Negative (Negative); Leukocyte Esterase Urine Negative (Negative); Nitrite Urine Negative (Negative); Protein Urine Negative (Negative); RBC Urine Automated 0-4 /hpf (0-4); Specific Gravity Urine 1.025 (1.000-1.030); Urobilinogen Urine Negative (Negative)
--- NOTE | 2021-10-10 12:03 | Hospitalist Progress Note ---
Date of Service October 10, 2021 Assessment & Plan (1) Pancreatitis: Plan: ? Secondary COVID-19 illness vs other -cont clears and decrease LR rate to 150cc/hr, likely advance diet in am. Outpatient EUS in 4-6 weeks. hypertension, elevated secondary discomfort-improved ARF secondary to illness-resolved with IVF, restart lisinopril hyperlipidemia on statin Rx anxiety/mood disorder, at baseline Hyperglycemia without evidence of DMII (A1C is 6) Heparin-change to Lovenox to decrease shot burden Full code Dispo-to home this weekend DO Jennifer Carlin Hospitalist Admission and Anticipated Discharge Date Admission Date: October 10, 2021 Subjective 61 yo F presents with abdominal pain that is suprapubic and epigastric Was tolerating food all day and remains on clears without further abd pain Lipase and LFTs normal Improved today Review of Systems Review of Systems: All systems were reviewed and negative except as indicated in HPI above. Physical Exam Physical Exam: CONSTITUTIONAL: WNWD, vitals as above, generally well- appearing, NAD EYES: normal conjunctivae, no scleral icterus ENT: external ear and nose normal, MMM NECK: trachea midline, RESPIRATORY: clear to auscultation bilaterally, no crackles, rales or wheezes, normal respiratory effort CARDIOVASCULAR: regular rate and rhythm, S1 and 2 heard without murmurs, gallops or rubs, no JVD, no peripheral edema CHEST: inspection of chest was normal GASTROINTESTINAL: soft, nontender, ND, no guarding MUSCULOSKELETAL: strength 5/5 throughout, head is normocephalic and atraumatic, neck supple, normal palpation of chest wall without tenderness SKIN: warm and dry, NEUROLOGIC: CN 2-12 grossly intact, no sensory deficit, normal cognition, normal speech, no tremor PSYCHIATRIC: alert cooperative and oriented to person, place and time. Results & Data Results & Data ([facility]) Vital Signs (Past 12 Hours) Vital Signs Temp Pulse Pulse Resp BP Pulse Ox 10/10/21 08:39 36.7 C 85 16 135/86 95 10/10/21 03:53 36.8 C 99 H 18 154/95 H 94 10/10/21 03:00 37 C 80 18 150/97 H 92 10/10/21 01:00 36.9 C 67 18 150/97 H 95 Laboratory Results Short CBC 10/09/21 10/10/21 Range/Units 21:05 06:45 WBC 9.08 7.19 (4.8-10.8) K/uL Hgb 14.0 12.6 (12.0-16.0) g/dL Hct 41.9 38.7 (37-47) % Plt Count 317 268 (130-400) K/uL BMP 10/09/21 10/10/21 21:05 06:45 Sodium 140 141 Potassium 3.5 4.0 Chloride 105 107 Carbon Dioxide 28 28 BUN 15 12 Creatinine 1.22 H 1.08 Glucose 138 H 97 Calcium 9.6 8.8 Liver Function 10/09/21 10/10/21 Range/Units 21:05 06:45 Total Bilirubin 0.3 0.3 (0.2-1.0) mg/dl Direct Bilirubin 0.0 (0-0.2) mg/dl AST 18 15 (13-39) U/L ALT 20 16 (7-52) U/L Alkaline Phosphatase 103 81 (34-104) U/L Albumin 4.2 3.6 (3.4-5.0) gm/dl Urine 10/10/21 Range/Units 08:50 Urine Color Yellow Urine Appearance Clear (Clear) Urine pH 6.0 (4.5-7.5) Ur Specific Mather 1.025 (1.000-1.030) Urine Protein Negative (Negative) Urine Glucose (UA) Negative (Negative) Diagnostic Findings Abdomen/Pelvis CT 10/09/21 20:[address] WITH IV CONTRAST CT DOSE: 1239.47 mGy.cm HISTORY: Acute generalized abdominal pain abd pain TECHNIQUE: Multiaxial CT images of the abdomen and pelvis were performed following the IV administration of 93 cc of Optiray, A dose lowering technique was utilized adhering to the principles of ALARA. COMPARISON STUDY: CT abdomen and pelvis 04/24/2013 FINDINGS: Mild subsegmental bibasilar atelectasis. No pneumatosis or pneumoperitoneum. The imaged inferior cardiac chambers are unremarkable. The spleen, adrenal glands and liver are unremarkable. Patency of the hepatic and portal veins. Cholecystectomy. Mild to moderate pancreatic atrophy. There is mild interstitial and peripancreatic edema involving the pancreatic head and uncinate process. No pancreatic ductal dilation, focal fluid collection or mass identified. No biliary ductal dilation. Symmetric enhancement of the kidneys without hydronephrosis. Mild urinary bladder wall thickening with partial distention. Heterogeneous uterus with suggested fundal fibroid and subcentimeter calcification. The previous noted large cystic pelvic mass is no longer present. No adnexal mass lesions identified on today's study. Aorta and IVC are unremarkable. There is no lymphadenopathy. Small hiatal hernia. Duodenal diverticulum. No bowel obstruction or bowel wall thickening. Colonic diverticulosis without acute diverticulitis. Mild fecal ret ention. Normal appendix. Unremarkable soft tissues. Degenerative changes of the spine, pelvis and hips. IMPRESSION: 1. Mild interstitial edematous pancreatitis. 2. No pancreatic or biliary ductal dilation or acute peripancreatic fluid collection. 3. No bowel obstruction or bowel wall thickening. 4. Additional findings as above include colonic diverticulosis, fibroid uterus and small hiatal hernia. ACT 112: Negative or not required by law. The above report was generated using voice recognition software. It may contain grammatical, syntax or spelling errors. Electronically signed by: Fermin Edwards M.D. 10/10/2021 8:29 AM Chest X-Ray 10/10/21 00:02 XR chest 1V portable CLINICAL HISTORY: Renal failure. COMPARISON STUDY: Chest radiograph April 24, 2013. FINDINGS: Lung volumes are normal. Lungs are clear. There is no pneumothorax or pleural effusion. Cardiac size is normal. Mediastinal contours are normal. There is no evidence for pulmonary edema. IMPRESSION: No acute cardiopulmonary findings. ACT 112: Negative or not required by law. Electronically signed by: Tato Jane M.D. 10/10/2021 6:44 AM Medications Administered Current Inpatient Medications Acetaminophen (Acetaminophen 325 Mg Tab) 650 mg PO Q6H PRN PRN Reason: Fever/pain Stop: 11/09/21 01:00 Buspirone HCl (Buspirone 5 Mg Tab) 20 mg PO BID [facility] Stop: 11/09/21 08:59 Last Admin: 10/10/21 08:40 Dose: 20 mg Documented by: Heparin Sodium (Porcine) (Heparin Sod 5,000 Unit/0.5 Ml Vial) 5,000 units SQ Q8 MARCIA Stop: 11/09/21 05:59 Last Admin: 10/10/21 05:50 Dose: 5,000 units Documented by: Hydromorphone HCl (Hydromorphone Inj 0.5 Mg/0.5 Ml Syr) 0.5 mg IV Q3H PRN PRN Reason: Pain Stop: 10/24/21 01:00 Last Admin: 10/10/21 01:28 Dose: 0.5 mg Documented by: Hydroxyzine HCl (Hydroxyzine Hcl 25 Mg Tab) 50 mg PO BID MARCIA Stop: 11/09/21 08:59 Last Admin: 10/10/21 08:41 Dose: 50 mg Documented by: Promethazine HCl 12.5 mg/ (Sodium Chloride) 50.5 mls @ 202 mls/hr IV Q6H PRN PRN Reason: Nausea And Vomiting Stop: 11/09/21 01:00 Lactated Ringer's (Lr) 1,000 mls @ 200 mls/hr IV .Q5H MARCIA Stop: 10/11/21 04:59 Last Admin: 10/10/21 08:59 Dose: 200 mls/hr Documented by: Lorazepam (Lorazepam 1 Mg Tab) 1 mg PO BID PRN PRN Reason: Anxiety Stop: 11/09/21 03:51 Last Admin: 10/10/21 04:30 Dose: 1 mg Documented by: Pantoprazole Sodium (Pantoprazole 40 Mg Tab) 40 mg PO DAILY MARCIA Stop: 11/09/21 08:59 Last Admin: 10/10/21 08:42 Dose: 40 mg Documented by: Sertraline HCl (Sertraline Hcl 100 Mg Tablet) 100 mg PO DAILY MARCIA Stop: 11/09/21 08:59 Last Admin: 10/10/21 08:42 Dose: 100 mg Documented by: Tramadol HCl (Tramadol Hcl 50 Mg Tablet) 25 - 50 mg PO Q4H PRN PRN Reason: Pain Stop: 11/09/21 01:00 (1) Pancreatitis Acute pancreatitis complication: unspecified Chronicity: acute Pancreatitis type: unspecified pancreatitis type Qualified Code(s): K85.90 - Acute pancreatitis without necrosis or infection, unspecified
--- NOTE | 2021-10-10 18:02 | Electrocardiogram Report ---
Test Reason : Blood Pressure : / mmHG Vent. Rate : 097 BPM Atrial Rate : 097 BPM P-R Int : 146 ms QRS Dur : 098 ms QT Int : 378 ms P-R-T Axes : 050 014 093 degrees QTc Int : 480 ms Normal sinus rhythm Low voltage QRS Prolonged QT Abnormal ECG When compared with ECG of 29-MAY-2013 13:45, No significant change was found Confirmed by Jose Roberto Tong ([id number]) on 10/10/2021 6:01:50 PM Referred By: REFERRED SELF Confirmed By:Watler Tong
[2021-10-10] MEDS: busPIRone 5 MG TAB PO SCH (19:59)
[2021-10-10] MEDS ORDERED: MELATONIN 3 MG TAB PO PRN (21:02)
[2021-10-11] MEDS: hydrOXYzine HCl 25 MG TAB PO SCH (08:27)
[2021-10-11] MEDS: SERTRALINE HCL 100 MG TABLET PO SCH (08:27)
[2021-10-11] MEDS: PANTOprazole 40 MG TAB PO SCH (08:27)
[2021-10-11] MEDS: busPIRone 5 MG TAB PO SCH (08:27)
[2021-10-11] MEDS ORDERED: ENOXAPARIN INJ 40 MG/0.4 ML SYR SQ SCH (09:00)
[2021-10-11] MEDS ORDERED: lisinopril 10 MG TAB PO SCH (09:00)
--- NOTE | 2021-10-11 16:28 | Discharge Summary ---
Date of Service October 11, 2021 Admission HPI Per Admitting Provider Chief Complaint: Abdominal pain Primary Care Provider: Farooq Regan DO History obtained from patient and records. Medical history significant for hypertension, hyperlipidemia, anxiety/mood disorder. Last confinement April 2013 under Gynecology service for right adnexal mass status post surgery. 4 days history of dry cough symptoms, chills, fair appetite. 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 Patient completed COVID-19 vaccination. Yesterday, patient noted achy periumbilical abdominal pain going up with nausea which felt like her gallbladder attack. No emesis. No chest pain, no SOB, no fever, no chills. No prior episodes. No recent EtOH intake/fatty meal intake. Patient consulted ER for evaluation. Admission Exam Per Admitting Provider GENERAL: Comfortable, pleasant, obese, slightly anxious, no respiratory distress SKIN: Normal color, warm HEENT: Bespectacled, [place] palpebral conjunctivae, no ptosis, dry buccal mucosa NECK : Supple, short neck, no tenderness CHEST : CTA, no tenderness HEART : RRR, no obvious murmurs ABDOMEN: Some distention, epigastric tenderness EXTREMITIES : No LE swelling/tenderness, no other conspicuous deformities noted NEUROLOGIC : Coherent, no facial asymmetry, no other gross focality Principal Diagnosis COVID 19, pancreatitis Discharge Exam General: Sitting comfortably in bed, not in distress, on room air HEENT: EOMI, NGUYEN, MMM Chest: Clear breath sounds bilaterally, no wheezes or crackles CVS: Regular rate and rhythm, normal heart sounds, no murmur Abdomen: Soft, non tender, not distended, normal bowel sounds Neuro: Awake, alert, oriented, conversing well, non focal Extremities: No cyanosis, clubbing or edema Discharge Data Allergies Allergy/AdvReac Type Severity Reaction Status Date / Time No Known Allergies Allergy Verified 10/10/21 00:12 Consultations 10/09/21 23:43 ED Decision to Admit Stat 10/10/21 03:52 Consult Gastroenterology Routine Ordered Studies 10/09/21 20:51 CT abd pelvis IV con only Urgent Hospital Course (1) COVID-19: (2) Pancreatitis: 61 year old female who presented to the ED with abdominal pain and nausea. Labs unremarkable but CT A/P suggested mild interstitial edematous pancreatitis. Lipase normal, LFT normal, she is s/p cholecystectomy. She was managed with bowel rest, IVF initially- Diet advanced. She has been tolerating normal diet without any issues. No pain, nausea or vomiting. Seen by GI and recommended outpatient EUS in about 6 weeks. She is anxious to get discharged. She is not hypoxic, no respiratory symptoms, no pneumonia and does not require any treatment for COVID 19. I spoke with her daughter who states they have arrangements for home isolation for next 8 days. She is comfortable and stable for discharge. Recommended returning to ED if recurrence of abd pain, nausea/vomiting or fever. No medication changes were made. Total Time Total Time Spent Total Time Spent (In Minutes): 35 Discharge Plan Discharge Items Patient Disposition: Home - Self-Care Reason For Visit: PANCREATITIS, COVID Discharge Diagnosis: Pacreatitis, covid Activity: Resume your previous activity Non-emergency contact: Primary Care Provider Call non-emergency contact if: you have any medication questions, your symptoms worsen, your pain is concerning for you and you have a fever Follow-up/Referrals: Farooq Regan, [Primary Care Provider] - Diet: Regular Addtl Attending Provider Instructions: We recommend home isolation for next 8 days. Follow up with GI in 4-6 weeks for endoscopic ultrasound If you have abdominal pain, nausea, vomiting, fever, please come back to the emergency. Pending Studies at Discharge: No Stand-Alone Forms: My [facility], Smoking Cessation Medications and DC Order Prescriptions: Continued lorazepam [Ativan] 1 mg tablet 1 mg PO AMPM PRN (Reason: Anxiety) RF: 0 atorvastatin 40 mg tablet 40 mg PO QAM RF: 0 sertraline 100 mg tablet 100 mg PO DAILY RF: 0 lisinopril 10 mg tablet 10 mg PO QAM RF: 0 buspirone 10 mg Tablet 20 mg PO BID RF: 0 hydroxyzine HCl 50 mg tablet 50 mg PO BID RF: 0 omeprazole magnesium [Prilosec OTC] 20 mg Tablet,Delayed Release (Dr/Ec) 20 mg PO DAILY RF: 0 Discharge Orders: Discharge Order (Routine); Ordered 10/11/21 Ordered By: Willem Arrieta/Other Patient Handouts: Prediabetes, 5 Steps for Eating Healthier Admission Data Admit Date/Time: 10/10/21 02:42 Attending Provider: Willem Robison Admit Provider: Ganga Galeano Primary Care Provider: Farooq Regan Other Providers: Ganga Galeano ; Delia James ; Nora Lee ; Maurizio Ha ; Kaylyn Ge ; Bakrai Merlos ; Kobe Wagner ; Caridad Phoenix ; Johny Buenrostro ; Kiya Coon ; Marija Sprague ; Connie Kohler ; Yane Armando ; Anu Weldon Other Interventions: Discharge Summary Assessment (RN) Last Done: 10/11/21 15:37
== END 2021-10-11 17:48 | disposition home or self-care (01) | DRG 438 ==
LOC: ED 20:29 → SUATTDRO 10-10 02:42 → 3E 10-10 02:42